=== PATIENT | male | born 1970 | race Caucasian/White ===

== ENCOUNTER 2023-12-28 06:45 | Emergency (ER) | payer MEDICAID ==
[~2023-12-28] VITALS: Ht 165.1 cm; Wt 73.6 kg
[~2023-12-28 06:45] MED LIST: ALD50 PO; CARV6.2548 MT; FOLI-43 MT; FURO20TA4 PO; LEVO-65 MT
[2023-12-28 06:53] VITALS: TEMP 98.3; O2SAT 98
[2023-12-28 07:20] LABS: BASOPHILS % 0.6 % (0.0-2.0); DIFFERENTIAL COMMENT 0; EOSINOPHILS % 4.4 % (0.0-5.0); HEMATOCRIT. 30.2 % (42.0-52.0); HEMOGLOBIN. 9.7 g/dL (14.0-18.0); LYMPHOCYTES % 20.8 % (20.0-50.0); MEAN CORPUSCULAR HEMOGLOBIN 24.3 pg (28.0-32.0); MEAN CORPUSCULAR VOLUME 76.1 fL (80.0-94.0); MEAN PLATELET VOLUME 7.1 fl (7.4-10.4); MONOCYTES % 9.9 % (2.0-8.0); NEUTROPHILS % 64.3 % (40.0-76.0); PLATELET 188 x1000/uL (130-400); RED BLOOD CELL COUNT 3.97 mill/uL (4.7-6.1); RED CELL DISTRIBUTION WIDTH 16.8 % (11.6-14.6); WHITE BLOOD COUNT 5.5 x1000/uL (4.5-11.0)
[2023-12-28 07:32] LABS: CHLORIDE 105 mEq/L (98-107); POTASSIUM 4.4 mEq/L (3.5-5.1); SODIUM 134 mEq/L (136-145)
[2023-12-28 07:33] LABS: CARBON DIOXIDE 25 mEq/L (21-32)
[2023-12-28 07:34] LABS: CALCIUM 8.7 mg/dL (8.7-10.4)
[2023-12-28 07:38] LABS: CREATININE 0.6 mg/dL (0.6-1.3); GLUCOSE 103 mg/dL (70-105); UREA NITROGEN BLOOD 8 mg/dL (9-23)
[2023-12-28 07:40] LABS: ALANINE AMINOTRANSFERASE 11 IU/L (10-49); ALBUMIN 3.4 g/dL (3.2-4.8); ASPARTATE AMINOTRANSFERASE 29 IU/L (<34)
[2023-12-28 07:41] LABS: BILIRUBIN DIRECT 0.7 mg/dL (<=3.0); BILIRUBIN TOTAL 1.2 mg/dL (0.1-1.0); PROTEIN TOTAL 7.2 g/dL (6.0-8.3)
[2023-12-28] MEDS ORDERED: SPIRONOLACTONE 50MG TABLET PO SCH (08:15)
[2023-12-28] MEDS ORDERED: FUROSEMIDE 40MG TABLET PO ONE (08:15)
[2023-12-28] MEDS ORDERED: SPIR100T5 MT (08:17)
[2023-12-28] MEDS ORDERED: FURO80TA87 MT (08:17)
[2023-12-28 09:07] VITALS: BP 121/77; PULSE 88; RESP 16
== END 2023-12-28 10:00 | disposition home or self-care (01) ==
LOC: ER 07:03
DX: R18.8 Other ascites (principal)
CPT/HCPCS: 36415; 80048; 80076; 85025; 99283

== ENCOUNTER 2024-10-23 06:52 | Emergency (ER) | payer MEDICAID ==
[~2024-10-23] VITALS: Ht 165.1 cm; Wt 78.0 kg
[~2024-10-23 06:52] MED LIST changes: +FURO80TA87 MT; -LEVO-65 MT; +SPIR100T5 MT
[2024-10-23 06:57] VITALS: O2SAT 100
[2024-10-23 08:19] LABS: BASOPHILS % 0.5 % (0.0-2.0); DIFFERENTIAL COMMENT 0; EOSINOPHILS % 2.4 % (0.0-5.0); HEMATOCRIT. 32.6 % (42.0-52.0); HEMOGLOBIN. 10.2 g/dL (14.0-18.0); LYMPHOCYTES % 12.2 % (20.0-50.0); MEAN CORPUSCULAR HEMOGLOBIN 23.8 pg (28.0-32.0); MEAN CORPUSCULAR HGB CONC 31.2 g/dL (31.0-37.0); MEAN CORPUSCULAR VOLUME 76.2 fL (80.0-94.0); MEAN PLATELET VOLUME 7.4 fl (7.4-10.4); MONOCYTES % 11.7 % (2.0-8.0); NEUTROPHILS % 73.2 % (40.0-76.0); PLATELET 139 x1000/uL (130-400); RED BLOOD CELL COUNT 4.27 mill/uL (4.7-6.1); RED CELL DISTRIBUTION WIDTH 17.3 % (11.6-14.6); WHITE BLOOD COUNT 4.6 x1000/uL (4.5-11.0)
[2024-10-23 08:23] LABS: CHLORIDE 105 mEq/L (98-107); POTASSIUM 4.1 mEq/L (3.5-5.1); SODIUM 135 mEq/L (136-145)
[2024-10-23 08:24] LABS: CARBON DIOXIDE 24 mEq/L (21-32); INR 1.1; PROTHROMBIN TIME 11.4 sec (9.6-11.0)
[2024-10-23 08:25] LABS: CALCIUM 8.7 mg/dL (8.7-10.4)
[2024-10-23 08:29] LABS: CREATININE 0.5 mg/dL (0.6-1.3); GLUCOSE 112 mg/dL (70-105); UREA NITROGEN BLOOD 7 mg/dL (9-23)
[2024-10-23 12:32] VITALS: BP 126/77; PULSE 80; RESP 12; TEMP 36.8; O2SAT 98
== END 2024-10-23 13:05 | disposition home or self-care (01) ==
LOC: ER 06:52
DX: R18.8 Other ascites (principal); K74.60 Unspecified cirrhosis of liver; Z79.899 Other long term (current) drug therapy; Z20.822 Contact with and (suspected) exposure to COVID-19
CPT/HCPCS: 80048; 85025; 85610; 36415; 49083; 99285; 87426; Z7610 ×7; 99284; A4606

== ENCOUNTER 2025-05-31 07:08 | Inpatient (IN) | payer MEDICAID ==
[~2025-05-31] VITALS: Ht 165.1 cm; Wt 78.0 kg
[~2025-05-31 07:08] MED LIST changes: -ALD50 PO; -CARV6.2548 MT; -FURO20TA4 PO
[2025-05-31 07:24] VITALS: O2SAT 100
[2025-05-31 09:22] LABS: BASOPHILS % 0.5 % (0.0-2.0); EOSINOPHILS % 4.5 % (0.0-5.0); HEMATOCRIT. 37.5 % (42.0-52.0); HEMOGLOBIN. 11.6 g/dL (14.0-18.0); LYMPHOCYTES % 20.5 % (20.0-50.0); MEAN PLATELET VOLUME 7.6 fl (7.4-10.4); MONOCYTES % 7.8 % (2.0-8.0); NEUTROPHILS % 66.7 % (40.0-76.0); PLATELET 132 x1000/uL (130-400); RED BLOOD CELL COUNT 4.96 mill/uL (4.7-6.1); RED CELL DISTRIBUTION WIDTH 18.3 % (11.6-14.6)
[2025-05-31 09:33] LABS: INR 1.1
[2025-05-31 09:39] LABS: CREATININE 0.6 mg/dL (0.6-1.3); UREA NITROGEN BLOOD < 5 mg/dL (9-23)
[2025-05-31] MEDS ORDERED: ACETAMINOPHEN 325MG TABLET PO PRN (11:45)
[2025-05-31] MEDS ORDERED: ONDANSETRON HCL 4MG/2ML INJ IV PRN (11:45)
[2025-05-31 11:50] VITALS: BP 127/70; PULSE 70; RESP 20; TEMP 37.0852
[2025-05-31] MEDS ORDERED: LIDOCAINE HCL 1% 10 MG/ML 10ML VIAL ONE (12:14)
[2025-05-31] MEDS: SPIRONOLACTONE 50MG TABLET PO SCH (12:24)
[2025-05-31 16:00] VITALS: BP 131/67; PULSE 77; RESP 18; TEMP 36.1; O2SAT 98
[2025-05-31] MEDS: FUROSEMIDE 40MG TABLET PO SCH (17:23)
[2025-05-31 20:00] VITALS: BP 133/67; PULSE 79; RESP 20; TEMP 36.4; O2SAT 99
[2025-06-01] VITALS: BP 116/75; PULSE 74; RESP 20; TEMP 36.6; O2SAT 99
[2025-06-01 08:00] VITALS: BP 117/87; PULSE 81; RESP 18; TEMP 37.2; O2SAT 99
[2025-06-01 12:00] VITALS: BP 119/84; PULSE 78; RESP 18; TEMP 36.8; O2SAT 99
[2025-06-01 16:00] VITALS: BP 122/82; PULSE 78; RESP 18; TEMP 36.9; O2SAT 99
[2025-06-01 20:00] VITALS: BP 121/68; PULSE 75; RESP 19; TEMP 36.3; O2SAT 100
[2025-06-02] VITALS: BP 102/56; PULSE 71; RESP 19; TEMP 36.4; O2SAT 97
[2025-06-02 04:00] VITALS: BP 107/51; PULSE 81; RESP 19; TEMP 36.2; O2SAT 99
[2025-06-02 08:00] VITALS: BP 125/62; PULSE 102; RESP 18; TEMP 36.5; O2SAT 97
[2025-06-02 10:45] VITALS: BP 125/62; PULSE 102; RESP 18; TEMP 97.7
[2025-06-02 12:00] VITALS: BP 107/66; PULSE 82; RESP 18; TEMP 36.5; O2SAT 98
== END 2025-06-02 12:20 | disposition home or self-care (01) ==
LOC: ER 07:08 → 6EST 10:44 → EDBEDREQTM 10:48 → EDBEDREQ 10:48
PROVIDERS: ADMIT Internal Medicine; ATTEND Internal Medicine
PROC: 0W9G3ZZ Drainage of Peritoneal Cavity, Percutaneous Approach (ICD-10-PCS; principal; 2025-05-31)
DX: K74.60 Unspecified cirrhosis of liver (principal); R18.8 Other ascites; D72.819 Decreased white blood cell count, unspecified; D64.9 Anemia, unspecified; F10.10 Alcohol abuse, uncomplicated; Z79.899 Other long term (current) drug therapy
CPT/HCPCS: 36415; 49083; 80048; 85025; 99285; J2003